=== PATIENT | female | born 1990 | race Caucasian/White ===

== ENCOUNTER 2021-02-12 16:29 | Emergency (ER) | payer MEDICAID ==
[~2021-02-12] VITALS: Ht 152.4 cm; Wt 55.0 kg
[~2021-02-12 16:29] MED LIST: HYDR-1348
[2021-02-12 21:21] VITALS: BP 120/78
== END 2021-02-12 21:22 | disposition home or self-care (01) ==
LOC: ER 16:29
DX: G89.29 Other chronic pain (principal); M54.9 Dorsalgia, unspecified; T40.2X5A Adverse effect of other opioids, initial encounter; I49.9 Cardiac arrhythmia, unspecified; Y92.9 Unspecified place or not applicable
CPT/HCPCS: 93005; 99283; Z7610